=== PATIENT | female | born 1985 | race Two or more races ===

== ENCOUNTER 2019-11-26 09:18 | Outpatient (CLI) | payer OTHER | END 2019-11-26 09:47 | disposition home or self-care (01) | LOC: RAD 09:18 | PROVIDERS: ATTEND Urology | DX: N20.1 Calculus of ureter (principal) ==

== ENCOUNTER 2019-11-26 10:49 | Outpatient (CLI) | payer OTHER | END 2019-11-26 10:56 | disposition home or self-care (01) | LOC: LAB 10:49 | PROVIDERS: ATTEND Urology | DX: N20.1 Calculus of ureter (principal); N30.00 Acute cystitis without hematuria ==

== ENCOUNTER 2019-12-09 08:35 | Outpatient (CLI) | payer OTHER | END 2019-12-09 08:42 | disposition home or self-care (01) | LOC: RAD 08:35 | PROVIDERS: ATTEND Urology | DX: N20.1 Calculus of ureter (principal) ==

== ENCOUNTER → 2019-12-10 | Outpatient (CLI) | payer OTHER | END | disposition home or self-care (01) | LOC: RAD 12:45 | PROVIDERS: ATTEND Urology | DX: N20.0 Calculus of kidney (principal) ==

== ENCOUNTER 2019-12-15 05:45 | Day surgery (SDC) | payer OTHER | END 2019-12-15 16:30 | disposition home or self-care (01) | LOC: CIR.AMB 05:45 | PROVIDERS: ATTEND Urology | DX: N20.1 Calculus of ureter (principal); Z20.828 Contact with and (suspected) exposure to other viral communicable diseases ==

== ENCOUNTER 2019-12-24 07:52 | Outpatient (CLI) | payer OTHER | END 2019-12-24 08:01 | disposition home or self-care (01) | LOC: RAD 07:52 | PROVIDERS: ATTEND Urology | DX: N20.1 Calculus of ureter (principal) ==